=== PATIENT | female | born 1960 | race African-American/Black ===

== ENCOUNTER 2021-08-23 14:27 | Emergency (ER) | payer OTHER ==
[2021-08-23 14:45] VITALS: BP 140/88; PULSE 81; TEMP 97.9; BMI 28.1
[2021-08-23] MEDS ORDERED: KETOROLAC TROMETHAMINE 60 MG/2 ML VIAL IM ONE (16:52)
[2021-08-23] MEDS ORDERED: KETOROLAC TROMETHAMINE 60 MG/2 ML VIAL ONE (16:58)
== END 2021-08-23 17:43 | disposition home or self-care (01) ==
LOC: JERFT 14:27
PROC: 3E0233Z Introduction of Anti-inflammatory into Muscle, Percutaneous Approach (ICD-10-PCS; principal; 2021-08-23)
DX: S00.03XA Contusion of scalp, initial encounter (principal); W20.8XXA Other cause of strike by thrown, projected or falling object, initial encounter
CPT/HCPCS: 70450-TC; 99284-25